=== PATIENT | male | born 1985 | race African-American/Black ===

== ENCOUNTER 2023-08-10 05:51 | Emergency (ER) | payer SELFPAY ==
[2023-08-10 05:55] VITALS: BP 162/108
[2023-08-10] MEDS: PEN VK 500 MG PO (06:40)
--- NOTE | 2023-08-10 06:43 | ED.GENMED ---
History of Present Illness
General
Chief Complaint: Dental Problem
Source: patient
Exam Limitations: none
Time Seen by Provider: 08/10/23 06:11
Travel History
Have you had any contact with someone who has COVID-19?: No
Do you have any symptoms of coronavirus? Fever > 100 degrees, chills, cough, shortness of breath, sore throat, loss of taste or smell, muscle aches, or headache?: No
History of Present Illness
History of Present Illness:
37-year-old male who presents with left jaw pain. He does state that he suspects this is dentition. He does admit that the pain is getting a little better after he took ibuprofen about an hour ago. Patient reports the pain radiates down toward
his left neck and into his left trapezius. He is a smoker. He knows he has a cracked tooth on the left upper dentition. Denies fevers. States that he woke up today with symptoms. He does have a scheduled dental follow-up. No chest pain. No
shortness of breath.
Past History
Past History
ED Past Medical History: Other (Pneumonia)
ED Past Surgical History: Orthopedic
Social History
Tobacco: Smoker
Alcohol: Occasional
Family History
Family History: Negative Diabetes or Hypertension
Phy Exam
Physical Exam
Physical Exam:
CONSTITUTIONAL Patient alert and oriented to person, place and time. Well-appearing. Vital signs reviewed.
HEAD atraumatic, normocephalic.
EYES eyelids normal to inspection, Extraocular muscles intact, Conjunctiva normal, Sclera normal.
ENT caries throughout the dentition but chronically cracked tooth in the left upper second molar. Does have moderate tenderness in this area. No gingival swelling. TM normal on the left. No palpable lymph nodes.
NECK normal range of motion, Trachea midline, no jugular venous distention.
RESPIRATORY CHEST No respiratory distress noted, Chest expansion equal
BACK normal inspection, no obvious deformities
UPPER EXTREMITY range of motion normal, Motor strength normal, no cyanosis, no edema.
LOWER EXTREMITY range of motion normal, Motor strength normal, no cyanosis, no edema.
NEURO Speech normal, No focal motor deficits, Travis coma scale 15, Memory normal, Cranial Nerves intact to screening exam.
SKIN skin warm, dry, and normal in color.
PSYCHIATRIC patient oriented to person place and time, Normal affect.
Course
Orders/Labs/Results
Orders:
Orders
08/10/23 06:34
Electrocardiogram (*1) Urgent
Reason for Study: Other
Other Reason for Exam: jaw, facial pain
EKG- Treatment ONCE
Penicillin V Potassium [Pen Vk] 500 mg PO NOW STA
Vital Signs
Initial and Last Documented VS:
Initial Vital Signs
Temp Pulse Resp BP Pulse Ox
98.2 F 80 16 162/108 100
08/10/23 05:55 08/10/23 05:55 08/10/23 05:55 08/10/23 05:55 08/10/23 05:55
Last Documented Vital Signs
Temp Pulse Resp BP Pulse Ox
98.2 F 80 16 162/108 100
08/10/23 05:55 08/10/23 05:55 08/10/23 05:55 08/10/23 05:55 08/10/23 05:55
MDM/Problems Addressed
MDM/Problems Addressed:
Dental caries
*Pulse Oximetry
Patient hypoxic: no
*EKG
Interpreted by ED Provider?: Yes
Interpretation: normal
Rate: normal
[place]: normal axis
Ischemia: no ischemia
*Critical Care Note
Total Time (30-74mins, 75-104mins- exclusive of procedures): Not Applicable
Data Reviewed
Source: patient
Further Testing Considered But Not Given:
Considered lab work but suspect dental infection as etiology
Patient Management
Escalation/DeEscalation of care consider admission/obs:
Left facial pain suspected from dental origin. Cover with antibiotics. Okay for discharge. Recommended NSAIDs every 6 hours and dental follow-up
ED Attending Note
-
Portions of this chart may have been created with voice recognition software.� Occasional wrong word or��sound alike� substitutions may have occurred due to the inherent limitations of voice recognition software.
Discharge Plan
Departure
Patient Disposition: Home (Routine Discharge)
Date of Disposition: 08/10/23
Time of Disposition: 07:13
Patient with high blood pressure during this ER visit?: Yes
Discharge Problem:
Dental caries, Pain, dental
Instructions: Dental Pain (DC), BLOOD PRESSURE
Prescriptions:
New
penicillin V potassium 500 mg tablet
500 mg PO QID Qty: 28 0RF
Referrals:
NONE,* [Family Provider] -
Activity Restrictions/Additional Instructions:
Please see your dentist in the next 3 to 5 days for follow-up and reevaluation. Please use ibuprofen every 6 hours for pain control. Please also alternate with Tylenol. Please work on smoking cessation. Return immediately for facial swelling,
fevers, worsening pain or any other concerns.
Interventions
Interventions:
*Risk Screen - Suicide Last Done: 08/10/23 05:55
*General Assessment Last Done: 08/10/23 05:55
*Neglect/Abuse Screening Last Done: 08/10/23 05:55
*ED COVID-19 Vaccine History Last Done: 08/10/23 06:41
[2023-08-10 08:00] VITALS: BP 139/84
== END 2023-08-10 08:00 | disposition home or self-care (01) ==
LOC: EMR 05:51
PROVIDERS: EMERGENCY PHYSICIAN Emergency Medicine
DX: K02.9 Dental caries, unspecified (principal); K08.89 Other specified disorders of teeth and supporting structures; R68.84 Jaw pain; K03.81 Cracked tooth; R03.0 Elevated blood-pressure reading, without diagnosis of hypertension; F17.200 Nicotine dependence, unspecified, uncomplicated; Z87.01 Personal history of pneumonia (recurrent)
CPT/HCPCS: 99283; 93005

== ENCOUNTER 2024-03-21 13:22 | Emergency (ER) | payer SELFPAY ==
[2024-03-21 13:25] VITALS: BP 133/96
[2024-03-21] MEDS: PERCOCET 5/325 2 TABLET PO (14:27)
--- NOTE | 2024-03-21 15:20 | ED.GENMED ---
History of Present Illness
General
Chief Complaint: Musculo-Skeletal Complaint
Source: patient
Exam Limitations: none
Time Seen by Provider: 03/21/24 13:33
Nursing documentation reviewed up to this point in time: agreed with
History of Present Illness
History of Present Illness:
38-year-old male presenting to the emergency department today with concerns of a pop and what he feels is likely an Achilles tear. He felt like somebody kicked him in the heel unable to plantarflex at this point. Happened yesterday while playing
basketball. Denies numbness weakness or additional concerns
Past History
Past History
ED Past Medical History: Other (Pneumonia)
ED Past Surgical History: Orthopedic
Social History
Tobacco: Smoker
Alcohol: Occasional
Family History
Family History: Negative Diabetes or Hypertension
Review of Systems
Review of Systems
Allergies reviewed?: Yes
All Other Systems: ROS reviewed and negative except as documented in HPI and ROS
Phy Exam
Physical Exam
Physical Exam:
GENERAL: Alert , in no apparent distress
EYE: pupils equal and reactive
NECK: Supple, no significant adenopathy.
ENT: o/p clr, mmm.
CARDIAC: Regular rate and rhythm .
LUNGS: Clear breath sounds bilaterally, no acute respiratory distress, no wheezes/rales/rhonchi
ABDOMEN: Soft, without focal tenderness, no r/g, no cvat
NEUROLOGICAL: Alert and oriented, no focal neuro deficits
SKIN: Warm and dry, skin intact.
MUSCULOSKELETAL: Swelling tenderness palpation to the posterior left sided Achilles region positive Beltrán squeeze test without motion of the foot. No edema, well perfused.
PSYCH: Normal and appropriate interaction.
Course
Orders/Labs/Results
Orders:
Orders
03/21/24 14:19
Oxycodone/Acetaminophen [Percocet 5/325] 2 tablet PO NOW STA
Vital Signs
Initial and Last Documented VS:
Initial Vital Signs
Temp Pulse Resp BP Pulse Ox
99 F 73 16 133/96 96
03/21/24 13:25 03/21/24 13:25 03/21/24 13:25 03/21/24 13:25 03/21/24 13:25
Last Documented Vital Signs
Temp Pulse Resp BP Pulse Ox
99 F 73 16 133/96 96
03/21/24 13:25 03/21/24 13:25 03/21/24 13:25 03/21/24 13:25 03/21/24 13:25
Procedures
Splinting/Sling Placement
Left Ankle:
Procedure completed by: Myself
Pre-splint extermity exam: neurovascular intact
Type of splint: posterior short leg
Splint material: fiberglass
Splint checked by provider?: Yes
Normal distal neurovascular exam?: Yes
Additional information:
Crutches given
MDM/Problems Addressed
MDM/Problems Addressed:
38-year-old male presenting to the emergency department with concerns of an injury to his left at the Achilles. Patient appears to have an Achilles tear on examination with positive Beltrán squeeze test and tenderness directly to the Achilles
region with notable gapping of the Achilles. Patient was placed in a plantar splint and otherwise will follow-up closely with orthopedics. Return precautions given.
*Critical Care Note
Total Time (30-74mins, 75-104mins- exclusive of procedures): Not Applicable
ED Attending Note
-
Portions of this chart may have been created with voice recognition software.� Occasional wrong word or��sound alike� substitutions may have occurred due to the inherent limitations of voice recognition software.
Discharge Plan
Departure
Patient Disposition: Home (Routine Discharge)
Date of Disposition: 03/21/24
Time of Disposition: 15:20
Patient with high blood pressure during this ER visit?: No
Condition: Good
Covid-19: Not Applicable
Discharge Problem:
Achilles tendon tear
Instructions: Achilles Tendon Rupture (DC)
Prescriptions:
New
oxycodone-acetaminophen [Percocet] 5-325 mg tablet
1 tab PO Q8H PRN (Reason: Pain) Qty: 7 0RF
No Action
penicillin V potassium 500 mg tablet
500 mg PO QID Qty: 28 0RF
Referrals:
NONE,* [Family Provider] -
Miguel Rangel MD [Active] - Follow up in 5-7 days
Activity Restrictions/Additional Instructions:
You came to the emergency department today with concerns of Achilles tear. Please wear the splint provided and use the crutches until orthopedic follow-up within 1 week. Return to the department for any worsening, new or concerning symptoms.
Interventions
Interventions:
*Risk Screen - Suicide Last Done: 03/21/24 14:33
*General Assessment Last Done: 03/21/24 14:33
*Neglect/Abuse Screening Last Done: 03/21/24 14:33
ED- Fall Risk Assessment Last Done: 03/21/24 14:33
*ED COVID-19 Vaccine History Last Done: 03/21/24 14:33
ED-Musculoskeletal Assessment Last Done: 03/21/24 14:33
Discharge Date and Time
Print Language: ITALIAN
[2024-03-21 15:38] VITALS: BP 128/81
== END 2024-03-21 15:33 | disposition home or self-care (01) ==
LOC: EMR 13:22
PROVIDERS: EMERGENCY PHYSICIAN Student in an Organized Health Care Education/Training Program
DX: S86.012A Strain of left Achilles tendon, initial encounter (principal); W50.0XXA Accidental hit or strike by another person, initial encounter
CPT/HCPCS: 99283; 29515